=== PATIENT | male | born 1950 | race African-American/Black ===

== ENCOUNTER → 2016-06-06 | Outpatient (CLI) | payer OTHER ==
[~2016-06-06] MED LIST: FLEXERIL; GABAPENTIN; PANTOPRAZOLE SO40 MG
--- NOTE | ~2016-06-06 | PFT ---
[id number] [facility] [address] [place], [place] [address] [id number] O MR#: [id number] NAME: GALE FOLEY ROOM: SEX: Francie STUDY DATE/TIME: 06/06/2016 : 1950 AGE: 66 STUDY DESCRIPTION: Attending Physician: Claudia Gibbs M.D. Referring Physician: Claudia Gibbs M.D. Primary Care Physician: Claudia Gibbs M.D. PULMONARY DIAGNOSTIC REPORT EXAM PFT. PROCEDURE Spirometry is normal. There is no significant response to bronchodilators. Flow volume loop is unremarkable. Lung volumes suggest a restrictive defect. Diffusion capacity is moderately reduced suggesting an intrinsic restrictive defect such as pulmonary fibrosis, and clinical correlation is needed. Dictated by... Violetta Jamison/shahnaz TD: 06/08/2016 10:29 JOB #: [id number] PULMONARY DIAGNOSTIC REPORT
== END | disposition home or self-care (01) ==
LOC: CRC 12:28
DX: R06.02 Shortness of breath (principal); I07.1 Rheumatic tricuspid insufficiency; I51.7 Cardiomegaly
CPT/HCPCS: 93306; 94060; 94726; 94729

== ENCOUNTER → 2016-06-27 | Outpatient (CLI) | payer OTHER ==
--- NOTE | ~2016-06-27 | US6 ---
[facility] A Service of [facility] RADIOLOGY TEXT RESULTS PATIENT: GALE FOLEY LOCATION: [facility] : 50 UNIT #: [id number] AGE: [address]: Claudia Gibbs MD SEX: M ORDER DR: [id number] [facility] [address]. [place], [place] [address] [id number] O MR#: [id number] Acc #: [id number] NAME: GALE FOLEY : 1950 SEX: M STUDY DATE/TIME: 06/27/2016 10:07 UNIT: [facility] ROOM: STUDY DESCRIPTION: US Abdominal Limited Attending Physician: Claudia Gibbs M.D. Ordering Physician: Claudia Gibbs M.D. Primary Care Physician: Claudia Gibbs M.D. MEDICAL IMAGING REPORT This report is preliminary unless electronic signature is present EXAM Right upper quadrant ultrasound, 06/27/2016 HISTORY Abdominal pain, discomfort and nausea for 3 months. FINDINGS The liver is homogeneous in echotexture and demonstrates no cystic or solid mass lesions. The intra and extrahepatic bile ducts are not dilated. The gallbladder contains a small amount of layering sludge but there is no evidence of cholelithiasis, gallbladder wall thickening or pericholecystic fluid. The common duct measures 5 mm. The pancreas and right kidney are normal. IMPRESSION Minimal gallbladder sludge. Otherwise negative right upper quadrant ultrasound. Dictated by... Herson Price M.D. THIS IS AN ELECTRONICALLY VERIFIED REPORT Herson Price M.D. at 06/28/2016 8:27 AM GHAZALA/ever TD: 06/27/2016 11:47 JOB #: [id number] MEDICAL IMAGING REPORT Page 1 of 1 COPY
== END | disposition home or self-care (01) ==
LOC: CGUS 08:25
DX: R10.13 Epigastric pain (principal)
CPT/HCPCS: 76705

== ENCOUNTER → 2016-11-15 | Day surgery (SDC) | payer OTHER ==
--- NOTE | ~2016-11-15 | OR ---
Unit #: [id number] #: [id number] Patient: GALE FOLEY [id number] [address] [place], [place] [address] [id number] O MR#: [id number] NAME: GALE FOLEY ROOM: Date of Procedure: 11/15/2016 Admission Date: 11/15/2016 Surgeon: Roque Duong M.D. : 1950 Attending Physician: Roque Duong M.D. Primary Care Physician: Claudia Gibbs M.D. OPERATIVE REPORT PREOPERATIVE DIAGNOSES Epigastric pain, postprandial dyspepsia. The patient has been taking lots of ibuprofen [id number] and was advised to discontinue that. Since then, his symptoms have gotten better. PROCEDURES PERFORMED Upper gastrointestinal endoscopy and biopsy. POSTOPERATIVE DIAGNOSES 1. The patient had moderate prepyloric erosive antral gastritis. 2. Focal patchy erosive duodenitis involving the duodenal bulb. 3. Rest of the examination up to third part of duodenum was normal. A biopsy was obtained from the antrum for CLOtest. RECOMMENDATIONS The above changes are most likely from NSAID usage. We will follow up the results of CLOtest. In the meantime, the patient will be started on Protonix 40 mg p.o. daily. He will be followed up in the office in 10 to 12 weeks' time. SEDATION USED MAC. DESCRIPTION OF PROCEDURE Following detailed explanation of potential risks and complications of an upper endoscopy, namely perforation, bleeding, and complications related to sedation, the patient was brought to GI lab and laid in the left lateral decubitus position. Lubricated tip of the Olympus video upper endoscope was passed through the bite block into the proximal esophagus under direct vision. The entire esophageal mucosa was examined and appeared normal. Z-line was nicely demarcated, there being no esophagitis or hiatus hernia. The scope was then advanced into the gastric cavity and the latter was insufflated. Mucosa of the fundus, body, and antrum was examined and moderate prepyloric antral erosive gastritis noted. Pylorus was intubated with visualization of the duodenal bulb. The latter was noted to have focal patchy erosive moderate duodenitis. Second and third part of duodenum were normal. Upon withdrawal and retroflexion; incisura, cardia, and greater curve was examined and a biopsy was obtained from the antrum for CLOtest. The scope was then withdrawn in the distal esophagus. The entire esophageal mucosa was examined all the way up to pharynx, no additional findings were noted. The patient tolerated the procedure without any postprocedure complications. Unit #: [id number] #: [id number] Patient: GALE FOLEY Dictated by... Violetta Bowman/austin TD: 11/15/2016 15:19 JOB #: [id number] CC: Claudia Gibbs M.D. OPERATIVE REPORT Page 1 of 1 X Roque Duong MD X PROCEDURE OPERATIVE NOTE
== END | disposition home or self-care (01) ==
LOC: COPS 12:26
DX: K29.60 Other gastritis without bleeding (principal); K29.80 Duodenitis without bleeding; Z79.1 Long term (current) use of non-steroidal anti-inflammatories (NSAID); Z79.899 Other long term (current) drug therapy; F17.200 Nicotine dependence, unspecified, uncomplicated; Z88.1 Allergy status to other antibiotic agents
CPT/HCPCS: 87077